=== PATIENT | female | born 1940 | race Caucasian/White ===

== ENCOUNTER 2019-07-29 23:22 | Emergency (ER) | payer MEDICARE ==
[~2019-07-29] VITALS: Ht 154.9 cm; Wt 117.9 kg
[2019-07-29 23:25] VITALS: BP_SYST 164
--- NOTE | 2019-07-29 23:25 | NUR ---
Patient to ER bed 3 to gown for evaluation. Side rails up.
--- NOTE | 2019-07-29 23:35 | NUR ---
Patient BIB BLS a&o x4 from home after she tripped and fell over her cane. Patient reports she landed on her right knee and could not get up afterwards. Patient denies experiencing lightheadness prior to fall or hitting head after fall. Patients right knee appears to be swollen, bruised, and warm to the touch. Patient rates her pain an 8 out of 10 and is aching/throbbing. Patient has a hx of high blood pressure. Patients daily medications are atenolol, clonidine, cozaar, hydralazine. No other medical complaints at this time.
--- NOTE | 2019-07-30 00:07 | NUR ---
ER Dr. Joe at bedside examining patient.
[2019-07-30] MEDS ORDERED: MORPHINE 2 MG/ML INJ. SYRINGE IVP ONE (00:15)
--- NOTE | 2019-07-30 00:19 | NUR ---
Xray at bedside.
--- NOTE | 2019-07-30 00:20 | NUR ---
Patient refusing Morphine at this time for her pain. aware.
--- NOTE | 2019-07-30 01:17 | NUR ---
Patient laying comfortably in bed awaiting results of xray. Vital signs stable.
--- NOTE | 2019-07-30 02:20 | NUR ---
Patient used a bedpan to use the restroom. Patient was cleaned and linens changed. Vital signs stable. Patient doesn't state any complaints.
[2019-07-30] MEDS ORDERED: ACETAMINOPHEN 500 MG TABLET PO ONE (03:00)
--- NOTE | 2019-07-30 03:01 | NUR ---
Knee immobilizer has been applied to patients right knee per MD order.
--- NOTE | 2019-07-30 03:07 | NUR ---
Patient states daughter is on her way to pick her up to take her home.
[2019-07-30 03:32] VITALS: BP_SYST 133
--- NOTE | 2019-07-30 03:32 | NUR ---
Patient given written and verbal discharge instructions and verbalizes understanding. ER MD discussed with patient the results and treatment provided. Patient in stable condition. ID arm band removed. Rx of ibuprofen given. Patient educated on pain management and to follow up with PMD. Pain Scale 6/10. Opportunity for questions provided and answered. Medication side effect fact sheet provided.
== END 2019-07-30 04:05 | disposition home or self-care (01) ==
LOC: SED 23:22
DX: S83.91XA Sprain of unspecified site of right knee, initial encounter (principal); W01.0XXA Fall on same level from slipping, tripping and stumbling without subsequent striking against object, initial encounter; Y93.89 Activity, other specified; Y92.89 Other specified places as the place of occurrence of the external cause; Y99.8 Other external cause status
CPT/HCPCS: 73564; 73700-TC; 99285